=== PATIENT | male | born 1940 | race Caucasian/White ===

== ENCOUNTER 2016-10-05 13:46 | Outpatient (CLI) | payer MEDICARE, BC ==
[2016-10-05 14:13] LABS: CREATININE 1.6 mg/dL (0.6-1.3)
[2016-10-05 14:17] LABS: CALCIUM, SERUM 9.7 mg/dL (8.5-10.1)
== END 2016-10-05 23:59 | disposition home or self-care (01) ==
LOC: LAB 13:46
PROVIDERS: ATTEND Internal Medicine Interventional Cardiology
DX: R60.9 Edema, unspecified (principal)
CPT/HCPCS: 36415; 80048-TC

== ENCOUNTER 2018-04-05 11:59 | Outpatient (CLI) | payer MEDICARE, BC ==
[2018-04-05 12:49] LABS: ALANINE AMINOTRANSFERASE 24 U/L (12-78); ALBUMIN 3.5 g/dL (3.4-5.0); ALKALINE PHOSPHATASE 46 U/L (46-116); ASPARTATE AMINOTRANSFERASE 26 U/L (15-37); BILIRUBIN,TOTAL 0.6 mg/dL (0.2-1.0); CALCIUM, SERUM 9.8 mg/dL (8.5-10.1); CARBON DIOXIDE 28 mmol/L (21-32); CHLORIDE 99 mmol/L (98-107); CREATININE 2.4 mg/dL (0.6-1.3); GLUCOSE 154 mg/dL (74-106); MAGNESIUM 2.5 mg/dL (1.8-2.4); POTASSIUM 5.2 mmol/L (3.5-5.1); SODIUM SERUM 135 mmol/L (136-145); TOTAL PROTEIN, SERUM 7.1 g/dL (6.4-8.2); UREA NITROGEN, BLOOD 39 mg/dL (7-18)
== END 2018-04-05 23:59 | disposition home or self-care (01) ==
LOC: LAB 11:59
PROVIDERS: ATTEND Internal Medicine Interventional Cardiology
DX: I50.9 Heart failure, unspecified (principal)
CPT/HCPCS: 36415; 80053-TC; 83735-TC